=== PATIENT | female | born 1950 | race Caucasian/White ===

== ENCOUNTER 2021-12-17 14:39 | Observation (INO) | payer MEDICARE, SELFPAY ==
--- NOTE | ~2021-12-17 | CT_ITS ---
EXAMINATION: CT abdomen pelvis wo con DATE: 12/17/2021 18:09 INDICATION: LOWER abdominal pain, n/v/d TECHNIQUE: Computed tomography (CT) of the abdomen and pelvis was performed without intravenous contr ast. Automated exposure control and iterative reconstruction technique were employed. The dose-length product was 673.22 mGy-cm. COMPARISON: None FINDINGS: Lower thorax: Bibasilar atelectasis. Mild coronary artery calcification. Aortic valve calcification. Small-volume pericardial effusion. Liver: Normal. Biliary/Gallbladder: Gallbladder is normal. No bile duct dilation. Pancreas: No mass or duct dilation. Spleen: Granulomatous calcifications. Adrenals:No mass. Kidneys: No mass, stone, or hydronephrosis. GI tract: Multiple loops of dilated small bowel in the mid and lower left abdomen. A loop of of small bowel herniates through an umbilical hernia, with upstream dilation. Appendix not visualized. Divert iculosis without diverticulitis. Mesentery/Peritoneum: No ascites, mass, or free air. Retroperitoneum: No mass. Pelvis: Pelvic organs are within normal limits. Soft Tissues: Small and local hernia containing fat and a loop of small bowel, with a 1.7 cm neck. Th ere is surrounding inflammatory change. Bones: No acute osseous finding. IMPRESSION: 1. Small pericardial effusion. 2. Early small bowel obstruction versus partial small bowel obstruction due to herniation into an umb ilical hernia, with inflammation of the hernia sac. Reviewed, dictated and finalized at location K. IMPRESSION: 1. Small pericardial effusion. 2. Early small bowel obstruction versus partial small bowel obstruction due to herniation into an umbilical hernia, with inflammation of the hernia sac.
[2021-12-17 14:40] VITALS: BP 140/64; PULSE 66; RESP 14; TEMP 36.6; O2SAT 100
[2021-12-17 16:11] VITALS: BP 146/70; PULSE 65; RESP 18; TEMP 36.7; O2SAT 98
[2021-12-17 16:52] LABS: Basophils Percent Auto 0.3 % (0.2-1.2); Eosinophils Percent Auto 0.1 % (0-4.4); Hematocrit 39.5 % (37.0-47.0); Hemoglobin 12.4 g/dL (12.0-15.0); Immature Granulocyte Absolute 0.02 K/mm3 (0.00-0.031); Immature Granulocyte Percent A 0.3 % (0-0.5); Lymphocytes Absolute Auto 0.76 K/mm3 (0.9-3.2); Lymphocytes Percent Auto 9.8 % (18.3-44.2); Mean Corpuscular HGB Conc 31.4 g/dl (32-36); Mean Corpuscular Hemoglobin 28.4 pg (26-34); Mean Corpuscular Volume 90.6 fl (80-100); Monocytes Absolute Auto 0.2 K/mm3 (0.1-0.6); Monocytes Percent Auto 2.2 % (2.6-8.5); Neutrophils Absolute Auto 6.8 K/mm3 (1.3-6.7); Neutrophils Percent Auto 87.3 % (45.5-73.1); Platelet Count Result 252 k/mm3 (150-375); Red Blood Count 4.36 M/mm3 (4.2-5.4); Red Cell Distribution Width 13.8 % (11.5-14.5); White Blood Count 7.8 K/mm3 (4.5-10.0)
[2021-12-17 16:53] LABS: Appearance Urine Clear (Clear); Bilirubin Urine 1+ (Negative); Blood Urine Negative (Negative); Color Urine Yellow (Yellow); Glucose Urine UA Negative (Negative); Ketones Urine Trace mg/dL (Negative); Leukocyte Esterase Ur Negative LEU/UL (Negative); Nitrate Urine Negative (Negative); Protein Urine Negative (Negative); Specific Grav Ur >= 1.030 (1.001-1.035)
[2021-12-17 16:59] LABS: Bacteria Urine Trace /hpf; Mucus Urine Heavy /lpf; Squamous Epithelial Cell Urine Rare /hpf (Few)
[2021-12-17 17:00] LABS: Add Urine Microscopic? YES
[2021-12-17 17:04] LABS: Alanine Aminotransferase 21 U/L (6-35); Albumin Level 4.4 g/dL (3.5-5.1); Alkaline Phosphatase 64 U/L (38-126); Anion Gap 8 mmol/L (8-16); Aspartate Amino Transferase 34 U/L (14-36); Blood Urea Nitrogen 22 mg/dL (7-17); Calcium 8.9 mg/dL (8.4-10.2); Carbon Dioxide 26 mmol/L (22-30); Chloride 101 mmol/L (98-107); Estimated CRCL calculation 52 ml/min; Estimated Glomerular Filt Rate > 60; Glucose 152 mg/dL (65-110); Lipase 112 U/L (23-300); Potassium 3.8 mmol/L (3.4-5.0); Sodium 135 mmol/L (137-145)
[2021-12-17 17:29] VITALS: BP 146/70; PULSE 64; RESP 16; O2SAT 99
--- NOTE | 2021-12-17 17:30 | ED.ABDPAIN ---
HPI - Abdominal Pain General Chief Complaint: Abdominal Pain Stated Complaint: abdominal pain Time Seen by Provider: 12/17/21 16:15 History of Present Illness HPI narrative: 71-year-old female presented emerged department for evaluation of cute onset of abdominal pain. Patient states that she stood up earlier today and had acute onset periumbilical abdominal pain. Patient states that since that time she does have periumbilical tenderness. Patient states she has had this happen previously but states the symptoms only lasted approximately 5 minutes. Patient states that symptoms have persisted since lunchtime. Patient denies any prior previous abdominal surgical history or diagnosis of hernia. Related Data Allergies Allergy/AdvReac Type Severity Reaction Status Date / Time No Known Allergies Allergy Verified 12/17/21 17:30 Review of Systems Review of Systems: CONSTITUTIONAL: Denies fever, chills, or sweats. EYES: Denies visual changes, redness, or discharge. ENT: Denies rhinorrhea, congestion, sore throat, or otalgia. CARDIOVASCULAR: Denies chest pain, palpitations, or edema. RESPIRATORY: Denies cough or dyspnea. GASTROINTESTINAL: See HPI GENITOURINARY: Denies dysuria or hematuria. SKIN: Denies rash or itching. MUSCULOSKELETAL: Denies back pain, joint pain, or myalgia. NEUROLOGIC: Denies headache, numbness, or weakness. Exam Narrative: APPEARANCE: Well appearing, no pain, no distress, well-nourished. HEAD: normocephalic, atraumatic. EYES: PERRLA/EOMI, conjunctivae clear. NECK: Supple. No adenopathy, no masses. RESPIRATORY: Airway patent, respirations nonlabored. Clear to auscultation bilaterally, no rales, rhonchi, wheezing. CARDIOVASCULAR: Regular rate and rhythm without murmurs rubs or gallops. ABDOMINAL: Palpable umbilical hernia. No overlying erythema. Some tenderness to palpation. MUSCULOSKELETAL: Moves all extremities. Strength/ROM intact, No edema, No calf tenderness. NEURO: Alert. Cranial nerves II through XII intact. Grossly intact SKIN: Warm, dry. Normal Color Course Course Emergency Course: Attempted reduction of the hernia without success. Patient was able to tolerate the attempt well. Palpated aspect of the hernia was smaller after the attempt at reduction but is still clearly herniated on the CT scan. On reattempt hernia was ultimately reduced. Case was discussed with the hospitalist and patient was accepted for observation. Dr. Pineda was consulted. Reevaluation(s) Reevaluation #1: Hernia was able to be reduced successfully reattempt after ice pack. Consultations Consultation #1: Dr. Pineda was consulted for hernia repair. He stated if we are not able to reduce he recommended placement of NG tube. I was ultimately able to reduce the hernia and did not place an NG tube. Patient was still made NPO. Vital Signs Vital signs: Vital Signs Temperature 97.8 F 12/17/21 14:40 Pulse Rate 66 12/17/21 14:40 Respiratory Rate 14 12/17/21 14:40 Blood Pressure 140/64 12/17/21 14:40 Pulse Oximetry 100 12/17/21 14:40 Oxygen Delivery Room Air 12/17/21 14:40 Temperature 98.1 F 12/17/21 16:11 Pulse Rate 63 12/17/21 19:21 Respiratory Rate 15 12/17/21 19:21 Blood Pressure 156/74 H 12/17/21 19:21 Pulse Oximetry 96 12/17/21 19:21 Oxygen Delivery Room Air 12/17/21 16:11 MDM - Abdominal Pain Lab Data Attestation: I reviewed the patient's lab results. Result diagrams: 12/17/21 16:47 12/17/21 16:47 Labs: Lab Results 12/17/21 12/17/21 12/17/21 Range/Units 16:40 16:47 16:47 WBC 7.8 (4.5-10.0) K/mm3 RBC 4.36 (4.2-5.4) M/mm3 Hgb 12.4 (12.0-15.0) g/dL Hct 39.5 (37.0-47.0) % MCV 90.6 (80-100) fl MCH 28.4 (26-34) pg MCHC 31.4 L (32-36) g/dl RDW 13.8 (11.5-14.5) % Plt Count 252 (150-375) k/mm3 MPV 9.0 (7.4-10.4) fl Immature Gran % (Auto) 0.3 (0-0.5) % Neut % (Auto) 87.3 H (45
[2021-12-17] MEDS: HYDROmorphone HCL INJ (*CRX) 1 MG/ML SYR 0.5 MG IV PUSH (18:09)
[2021-12-17 19:21] VITALS: BP 156/74; PULSE 63; RESP 15; O2SAT 96
--- NOTE | 2021-12-17 19:22 | PC.NURSE ---
Assumed care of pt at this time. Pt alert and upright on stretcher, states pain has improved. Updated on POC
--- NOTE | 2021-12-17 19:25 | P.HP_ITS ---
H&P: HPI History of Present Illness Date/Time: 12/17/21 19:25 Meds Home Medications and Allergies Allergies Allergy/AdvReac Type Severity Reaction Status Date / Time No Known Allergies Allergy Verified 12/17/21 17:30 Vital Signs Vital Signs - 24 hr 12/17/21 14:40 12/17/21 16:11 12/17/21 17:29 Temperature 97.8 F 98.1 F Pulse Rate 66 65 64 Respiratory Rate 14 18 16 Blood Pressure 140/64 146/70 H 146/70 H Pulse Oximetry 100 98 99 Oxygen Delivery Room Air Room Air 12/17/21 19:21 Temperature Pulse Rate 63 Respiratory Rate 15 Blood Pressure 156/74 H Pulse Oximetry 96 Oxygen Delivery H&P: Results Labs Labs: Short CBC 12/17/21 Range/Units 16:47 WBC 7.8 (4.5-10.0) K/mm3 Hgb 12.4 (12.0-15.0) g/dL Hct 39.5 (37.0-47.0) % Plt Count 252 (150-375) k/mm3 BMP 12/17/21 16:47 Sodium 135 L Potassium 3.8 Chloride 101 Carbon Dioxide 26 BUN 22 H Creatinine 0.90 Glucose 152 H Calcium 8.9 Liver Function 12/17/21 Range/Units 16:47 Total Bilirubin 1.0 (0.2-1.3) mg/dL AST 34 (14-36) U/L ALT 21 (6-35) U/L Alkaline Phosphatase 64 (38-126) U/L Albumin 4.4 (3.5-5.1) g/dL Urine 12/17/21 Range/Units 16:40 Urine Color Yellow (Yellow) Urine Appearance Clear (Clear) Urine pH 6.0 (5.0-9.0) Ur Specific [place] >= 1.030 (1.001-1.035) Urine Protein Negative (Negative) mg/dL Urine Glucose (UA) Negative (Negative) mg/dL
[2021-12-17 20:08] VITALS: BP 149/71; PULSE 69; RESP 18; O2SAT 100
[2021-12-17 20:23] LABS: SARS-CoV-2 RNA PCR Negative
[2021-12-17 20:27] VITALS: BP 131/55; PULSE 69; RESP 17; TEMP 36.1; O2SAT 97
--- NOTE | 2021-12-17 20:39 | ADMGEN ---
This patient, Madisyn Miller, was admitted to Medical Room 247-. Patient/family oriented to hospital policies and general routines including ID bracelet, bed and alarms, visiting hours, pain management, procedures, bathroom and other care routines, personal items, smoking policy, room service/diet, and visiting hours. Information on how to activate the Rapid Response Team has been discussed. Patient/Family are encouraged to report perceived risks to care and to ask questions if they do not understand what they are told or what they should do.
[2021-12-17 20:50] VITALS: BMI 30.5
[2021-12-17] MEDS: SODIUM CHLORIDE 0.9% IV 1,000 ML 100 ML IV CONT (21:00)
--- NOTE | 2021-12-17 21:00 | PM.IMHP ---
H&P: HPI History of Present Illness Date/Time: 12/17/21 20:00 Chief Complaint: Abdominal pain. Narrative: This is a pleasant 71-year-old female with hyperlipidemia and diabetes who presented to the emergency department from home for evaluation of acute onset of abdominal pain. She developed sudden onset periumbilical abdominal pain after standing up from eating lunch at the table. She has a difficult time describing the pain but reports that it was quite severe. She took some Aleve which did not seem to help and due to persistent symptoms she was brought in for evaluation. CT of the abdomen and pelvis showed an early small-bowel obstruction versus partial small-bowel obstruction due to herniation into an umbilical hernia. The hernia was able to be reduced in the emergency department but it was felt that she should be admitted overnight for close monitoring and surgery consultation. At the time my evaluation she reports only a soreness in the umbilical region. She denies current abdominal pain, nausea, vomiting, diarrhea, and constipation. Review of Systems Review of Systems: Twelve systems were reviewed. No fever, chills, or sweats. No recent cold or flu symptoms. After she was diagnosed with diabetes, she started an exercise regimen and has been watching her portions and she has dropped between 50 and 60 lb. Her glucose is very well controlled. Except as documented, all other systems were reviewed and are negative. [facility] Past Medical History Medical History (Updated 12/18/21 @ 00:27 by Shari Mcguire PA-C) Hyperlipidemia Type 2 diabetes mellitus Surgical History Surgical History (Updated 12/18/21 @ 00:15 by Shari Mcguire PA-C) History of bilateral breast biopsy History of cataract extraction with lens replacement History of tubal ligation Family History Family History Mother Diabetes mellitus Sibling FH: juvenile onset diabetes mellitus Heart disease Sibling Stomach cancer Father Heart disease Social History Social History (Updated 12/18/21 @ 00:25 by Shari Mcguire PA-C) Social History: She designates her 3 children as her surrogate decision makers. Code status: Full code. Smoking status: Never smoker Alcohol intake: never Substance use: never Substance use type: does not use Additional living arrangements comments: The patient lives with her in [place]. Occupation/Education: retired Spiritual care concerns: No Meds Home Medications and Allergies Home Medications Medication Instructions Recorded Confirmed Type atorvastatin 20 mg tablet 1 tablet PO DAILY 12/17/21 12/17/21 History cholecalciferol (vitamin D3) 125 125 mcg PO DAILY 12/17/21 12/17/21 History mcg (5,000 unit) tablet (Vitamin D3) metformin 500 mg tablet,extended 1 tablet PO DAILY 12/17/21 12/17/21 History release 24 hr Allergies Allergy/AdvReac Type Severity Reaction Status Date / Time No Known Allergies Allergy Verified 12/17/21 20:43 Vital Signs Vital Signs - 24 hr 12/17/21 14:40 12/17/21 16:11 12/17/21 17:29 Temperature 97.8 F 98.1 F Pulse Rate 66 65 64 Respiratory Rate 14 18 16 Blood Pressure 140/64 146/70 H 146/70 H Pulse Oximetry 100 98 99 Oxygen Delivery Room Air Room Air 12/17/21 19:21 12/17/21 20:08 12/17/21 20:27 Temperature 96.9 F L Pulse Rate 63 69 69 Respiratory Rate 15 18 17 Blood Pressure 156/74 H 149/71 H 131/55 L Pulse Oximetry 96 100 97 Oxygen Delivery 12/17/21 21:19 Temperature Pulse Rate Respiratory Rate Blood Pressure Pulse Oximetry Oxygen Delivery Room Air Exam Narrative: General: Well-developed female supine in bed in no distress. Weight: 85.8 kg. BMI: 30.5. HEENT: PERRL, EOMI. Sclerae anicteric. Oral mucosa moist. Oropharynx clear. Neck: Supple. Respiratory: Lungs are clear to auscultation bilaterally. Cardiovascular: Regular rate a
[2021-12-18 04:39] VITALS: BP 112/47; PULSE 54; RESP 17; TEMP 36.6; O2SAT 99
[2021-12-18 08:10] LABS: Glucose Point of Care 73 mg/dl (65-105)
--- NOTE | 2021-12-18 09:37 | PM.CNGS ---
Assessment and Plan Assessment and plan (1) Incarcerated umbilical hernia: Code(s): K42.0 - Umbilical hernia with obstruction, without gangrene Status: Acute Assessment and Plan: Patient states that after the CT recorded from her ER stay Dr. Baird had ice bag placed on her umbilicus and when he returned to remove it and check on her before she came to the floor her hernia had reduced. She has no pain at this time and there is no palpable mass within the umbilical hernia at this time on my exam. She also notes that she has had this happen and she was able to reduce at home about 2 months ago. Therefore, I believe it is diana to go ahead and repair this while she is here. We have the luxury of time and that she is now already with a decreased diet. I have checked with the nursing lime supervisor and probably would be able to go ahead and do this tomorrow after my other cases. Therefore, the risk, benefits, possible complications of a laparoscopic possible open umbilical hernia repair with mesh have been described to the patient including bleeding, infection, possible injury to surrounding organs, possible need to convert to an open procedure and the possibilities of infection or complications with the mesh have been discussed. She seems understand wished to proceed. (2) Hyperlipidemia: Code(s): E78.5 - Hyperlipidemia, unspecified Status: Acute Assessment and Plan: Hold current medications until after surgery (3) Type 2 diabetes mellitus: Code(s): E11.9 - Type 2 diabetes mellitus without complications Status: Acute Assessment and Plan: Will ask hospitalist to monitor and treat during her hospital stay. Most likely she will return to use of metformin once she is through the time of surgery. History of Present Illness Consult details Consult date: 12/18/21 Reason for consult: hernia (Incarcerated umbilical -- status post reduction) Requesting physician: Shari Mcguire PA-C Narrative: This patient is a pleasant overweight 71-year-old white female who had the unfortunate situation of developing a small bowel obstruction secondary to a loop of SB becoming incarcerated in a small to medium size umbilical hernia. See ED notes from yesterday. Review of Systems Constitutional: Constitutional: Reports no additional constitutional complaints, Reports fatigue and Denies malaise Eyes: Eyes: Denies change in vision and Denies loss of vision ENT: Reports Normal hearing present, Denies change in voice, Denies dizziness, Denies hoarseness and Denies sore throat Cardiovascular: Cardiovascular: Denies chest pain, Denies leg edema and Denies dyspnea Comments: Patient has a history of hyperlipidemia and is on medication. Respiratory: Respiratory: Denies cough, Denies dyspnea and Denies wheezing Gastrointestinal: Gastrointestinal: Denies hematochezia, Denies change in bowel habits and Denies heartburn Genitourinary: Genitourinary: Denies urinary frequency and Denies urinary incontinence Neurologic: Reports Normal hearing present, Denies confusion, Denies dizziness, Denies loss of vision, Denies memory loss and Denies seizure-like activity Psychiatric: Psychiatric: Denies confusion, Denies depression and Denies memory loss Endocrine: Endocrine: Denies cold intolerance and Reports fatigue Comments: patient has about a 2-3 year history of type 2 diabetes and is on metformin. Hematologic/Lymphatic: Hematologic/Lymphatic: Denies easy bleeding and Denies easy bruising Allergic/Immunologic: Allergic/Immunologic: Denies wheezing PMFSH Past Medical History Medical History Hyperlipidemia Type 2 diabetes mellitus Surgical History Surgical History History of bilateral breast biopsy History of cataract extraction with lens replacement History of tubal ligation Family History F
--- NOTE | 2021-12-18 09:45 | PM.IMPN ---
Progress Note: A&P Assessment and Plan (1) Incarcerated umbilical hernia: Code(s): K42.0 - Umbilical hernia with obstruction, without gangrene Status: Acute Assessment and Plan: CT on arrival showed early small-bowel obstruction versus partial small obstruction related to hernia. Hernia has since been reduced and her abdominal pain is resolved. Surgery consulted and their input is appreciated. Will be scheduled for surgical procedure tomorrow Advance diet per surgery (2) Type 2 diabetes mellitus: Code(s): E11.9 - Type 2 diabetes mellitus without complications Status: Acute Assessment and Plan: Current glucose is 152 Hold metformin while hospitalized. Initiate sliding scale insulin, Accu-Cheks, and hypoglycemic protocol. (3) Hyperlipidemia: Code(s): E78.5 - Hyperlipidemia, unspecified Status: Acute Assessment and Plan: Continue statin; LFTs within normal limits. Time Spent With Patient Time with patient: Greater than 35 minutes Subjective Date/time seen: 12/18/21 09:45 Interval history: 12/18/2145 Patient stated that she feels better today. She stated that her belly does not hurt and she has no nausea, vomiting, chest pain, shortness of breath, weakness or fatigue. She did state that they were going to fix the hernia in the morning. She is also getting up and walking around. She also has been placed on clear liquids for the evening will be NPO after midnight. 12/17/21? 20:00 This is a pleasant 71-year-old female with hyperlipidemia and diabetes who presented to the emergency department from home for evaluation of acute onset of abdominal pain. She developed sudden onset periumbilical abdominal pain after standing up from eating lunch at the table. She has a difficult time describing the pain but reports that it was quite severe. She took some Aleve which did not seem to help and due to persistent symptoms she was brought in for evaluation. CT of the abdomen and pelvis showed an early small-bowel obstruction versus partial small-bowel obstruction due to herniation into an umbilical hernia. The hernia was able to be reduced in the emergency department but it was felt that she should be admitted overnight for close monitoring and surgery consultation. At the time my evaluation she reports only a soreness in the umbilical region. She denies current abdominal pain, nausea, vomiting, diarrhea, and constipation. Review of Systems Review of Systems: All systems reviewed & are unremarkable except as noted in HPI and below Exam Const: General: cooperative, healthy appearing, no acute distress, well developed, alert and awake Nutritional Appearance: well nourished Orientation/consciousness: patient oriented x3 Limitations: no limitations HENMT: Head: normal to inspection Ears: hearing grossly normal bilaterally General nose exam: Normal external nose present Mouth: Yes Normal oral and palatal mucosa present, Yes lip normal and Yes tongue normal Teeth and gingiva: abnormal tooth and associated gingiva and poor dentition Eyes: General: appearance normal, both eyes and all related structures Neck: Neck: normal visual inspection, full ROM, trachea midline and supple Chest: Chest palpation & inspection: normal inspection of the chest Resp: Effort & Inspection: normal respiratory effort and able to speak in complete sentences Auscultation: clear to auscultation bilaterally Cardio: Jugular venous distension: no JVD Rate: regular rate Rhythm: regular rhythm Heart sounds: S1 normal heart sound present and S2 normal heart sound present Peripheral pulses: Peripheral pulses 2+ throughout GI: Inspection: normal to inspection GI Palp: Yes Soft to palpation and No Tenderness to palpation present (GI) Auscultation: normal bowel sounds Skin: General skin exam: normal color and no rashes or lesions noted Lesions: no lesions Rashes: no rashes Trauma: no lace
[2021-12-18 11:42] LABS: Glucose Point of Care 80 mg/dl (65-105)
[2021-12-18] MEDS: polyethylene glycoL 3350 17 GM POWD.PACK PO ×2 (11:55→18:04)
--- NOTE | 2021-12-18 13:49 | PCCCNOTE ---
On 12/18/21, the student, [Mari Whittington], provided care and completed [facility] documentation on this patient. I have reviewed the student's documentation and agree with the findings.
[2021-12-18 14:20] VITALS: BP 126/71; PULSE 58; RESP 16; TEMP 35.9; O2SAT 100
[2021-12-18 16:33] LABS: Glucose Point of Care 74 mg/dl (65-105)
[2021-12-18 19:39] VITALS: BP 129/69; PULSE 55; RESP 16; TEMP 36.6; O2SAT 100
[2021-12-18] MEDS: BISACODYL 10 MG SUPPOSITORY RECTAL (20:17)
[2021-12-18 20:41] LABS: Glucose Point of Care 62 mg/dl (65-105)
[2021-12-18 21:10] LABS: Glucose Point of Care 81 mg/dl (65-105)
[2021-12-19] VITALS (10 sets, daily range): BP systolic 105–132; BP diastolic 50–68; PULSE 56–86; RESP 12–18; TEMP 36.2–36.9; O2SAT 95–100
[2021-12-19 05:50] LABS: Basophils Percent Auto 0.3 % (0.2-1.2); Eosinophils Absolute Auto 0.1 K/mm3 (0-0.3); Eosinophils Percent Auto 1.7 % (0-4.4); Hematocrit 34.6 % (37.0-47.0); Hemoglobin 11.3 g/dL (12.0-15.0); Immature Granulocyte Absolute 0.01 K/mm3 (0.00-0.031); Immature Granulocyte Percent A 0.2 % (0-0.5); Lymphocytes Absolute Auto 1.88 K/mm3 (0.9-3.2); Mean Corpuscular HGB Conc 32.7 g/dl (32-36); Mean Corpuscular Hemoglobin 29.4 pg (26-34); Mean Corpuscular Volume 90.1 fl (80-100); Mean Platelet Volume 9.5 fl (7.4-10.4); Monocytes Absolute Auto 0.5 K/mm3 (0.1-0.6); Monocytes Percent Auto 8.3 % (2.6-8.5); Neutrophils Absolute Auto 3.4 K/mm3 (1.3-6.7); Neutrophils Percent Auto 57.5 % (45.5-73.1); Platelet Count Result 228 k/mm3 (150-375); Red Blood Count 3.84 M/mm3 (4.2-5.4); Red Cell Distribution Width 13.6 % (11.5-14.5); White Blood Count 5.9 K/mm3 (4.5-10.0)
[2021-12-19 06:06] LABS: Anion Gap -1 mmol/L (8-16); Blood Urea Nitrogen 12 mg/dL (7-17); Calcium 8.1 mg/dL (8.4-10.2); Carbon Dioxide 28 mmol/L (22-30); Chloride 107 mmol/L (98-107); Estimated CRCL calculation 68 ml/min; Estimated Glomerular Filt Rate > 60; Glucose 73 mg/dL (65-110); Potassium 3.9 mmol/L (3.4-5.0); Sodium 134 mmol/L (137-145)
[2021-12-19 07:35] LABS: Glucose Point of Care 70 mg/dl (65-105)
[2021-12-19] MEDS: CHLORHEXIDINE GLUCONATE 4% SOL 120 ML BTL 1 APPLIC TOPICAL (07:48)
--- NOTE | 2021-12-19 08:00 | PM.IMPN ---
Progress Note: A&P Assessment and Plan (1) Incarcerated umbilical hernia: Code(s): K42.0 - Umbilical hernia with obstruction, without gangrene Status: Acute Assessment and Plan: CT on arrival showed early small-bowel obstruction versus partial small obstruction related to hernia. Hernia has since been reduced and her abdominal pain is resolved. Surgery consulted and their input is appreciated. Hernia repair scheduled for today Post op care per general surgery DVT prophylaxis deferred to surgery Currently NPO Advance diet per surgery (2) Type 2 diabetes mellitus: Code(s): E11.9 - Type 2 diabetes mellitus without complications Status: Acute Assessment and Plan: Current glucose is 73 Hold metformin while hospitalized. Initiate sliding scale insulin, Accu-Cheks, and hypoglycemic protocol. (3) Hyperlipidemia: Code(s): E78.5 - Hyperlipidemia, unspecified Status: Acute Assessment and Plan: Continue statin; LFTs within normal limits. Time Spent With Patient Time with patient: Greater than 35 minutes Subjective Date/time seen: 12/19/21 08 Interval history: 12/19/21 08 Patient states that she is doing pretty good today. She states that she is ready to eat or get this done. She denies any chest pain, shortness of breath, nausea, vomiting, diarrhea, constipation, weakness or fatigue. Patient did state that she had a bowel movement last night. She also stated that she was tolerating her clear liquids. 12/18/21 0945 Patient stated that she feels better today. She stated that her belly does not hurt and she has no nausea, vomiting, chest pain, shortness of breath, weakness or fatigue. She did state that they were going to fix the hernia in the morning. She is also getting up and walking around. She also has been placed on clear liquids for the evening will be NPO after midnight. 12/17/21? 20:00 This is a pleasant 71-year-old female with hyperlipidemia and diabetes who presented to the emergency department from home for evaluation of acute onset of abdominal pain. She developed sudden onset periumbilical abdominal pain after standing up from eating lunch at the table. She has a difficult time describing the pain but reports that it was quite severe. She took some Aleve which did not seem to help and due to persistent symptoms she was brought in for evaluation. CT of the abdomen and pelvis showed an early small-bowel obstruction versus partial small-bowel obstruction due to herniation into an umbilical hernia. The hernia was able to be reduced in the emergency department but it was felt that she should be admitted overnight for close monitoring and surgery consultation. At the time my evaluation she reports only a soreness in the umbilical region. She denies current abdominal pain, nausea, vomiting, diarrhea, and constipation. Review of Systems Review of Systems: All systems reviewed & are unremarkable except as noted in HPI and below Exam Const: General: cooperative, healthy appearing, no acute distress, well developed, alert and awake Nutritional Appearance: well nourished Orientation/consciousness: patient oriented x3 Limitations: no limitations HENMT: Head: normal to inspection Ears: hearing grossly normal bilaterally General nose exam: Normal external nose present Mouth: Yes Normal oral and palatal mucosa present, Yes lip normal and Yes tongue normal Teeth and gingiva: abnormal tooth and associated gingiva and poor dentition Eyes: General: appearance normal, both eyes and all related structures Neck: Neck: normal visual inspection, full ROM, trachea midline and supple Chest: Chest palpation & inspection: normal inspection of the chest Resp: Effort & Inspection: normal respiratory effort and able to speak in complete sentences Auscultation: clear to auscultation bilaterally Cardio: Jugular venous distension: no JVD Rate: regular ra
--- NOTE | 2021-12-19 09:40 | ECG_ITS ---
Measurements Intervals [place] Rate: 55 P: 71 TX: 166 QRS: -14 QRSD: 86 T: 53 QT: 404 QTc: 389 Interpretive Statements SINUS BRADYCARDIA OTHERWISE NORMAL ECG NO PREVIOUS ECG AVAILABLE FOR COMPARISON Electronically Signed On 12-19-2021 10:28:14 CDT by Agus Caledron M.D.
[2021-12-19 10:22] LABS: Glucose Point of Care 66 mg/dl (65-105)
--- NOTE | 2021-12-19 10:33 | WPDANESEPPF ---
Anes - Initial Pre Proc Eval Procedure: Operation Date: 12/19/21 12:00 Proposed Procedures p Laparoscopic Umbilical Hernia Repair With Mesh,Possible Open - Star Pineda MD Date/Time: 12/19/21 10:33 Surgeon: Acacia Chavarria MD Pre Op Diagnosis: Umbilical Hernia Patient Data Age: 71 Gender: F Height: 1.68 m Weight: 85.6 kg Last Vital Signs Temp 36.4 C L 12/19/21 04:16 Pulse 59 L 12/19/21 04:16 Resp 16 12/19/21 04:16 BP 132/65 12/19/21 04:16 Pulse Ox 98 12/19/21 04:16 O2 Del Method Room Air 12/18/21 09:25 Allergies Allergy/AdvReac Type Severity Reaction Status Date / Time No Known Allergies Allergy Verified 12/17/21 20:43 Home Medications Medication Instructions Recorded Confirmed Type atorvastatin 20 mg tablet 1 tablet PO DAILY 12/17/21 12/17/21 History cholecalciferol (vitamin D3) 125 125 mcg PO DAILY 12/17/21 12/17/21 History mcg (5,000 unit) tablet (Vitamin D3) metformin 500 mg tablet,extended 1 tablet PO DAILY 12/17/21 12/17/21 History release 24 hr Laboratory Tests 12/18/21 12/18/21 12/18/21 11:39 16:31 20:36 WBC RBC Hgb Hct MCV MCH MCHC RDW Plt Count MPV Immature Gran % (Auto) Neut % (Auto) Lymph % (Auto) [place] % (Auto) Eos % (Auto) Baso % (Auto) Lymph # (Auto) [place] # (Auto) Eos # (Auto) Baso # (Auto) Abs Immat Gran (auto) Absolute Neuts (auto) Absolute Nucleated RBC Nucleated RBC % Sodium Potassium Chloride Carbon Dioxide Anion Gap BUN Creatinine Estim Creat Clear Calc Estimated GFR Glucose POC Capillary Glucose 80 mg/dl mg/dl 74 mg/dl mg/dl 62 mg/dl L mg/dl (65-105) (65-105) (65-105) Calcium 12/18/21 12/19/21 12/19/21 21:05 05:14 05:14 WBC 5.9 K/mm3 K/mm3 (4.5-10.0) RBC 3.84 M/mm3 L M/mm3 (4.2-5.4) Hgb 11.3 g/dL L g/dL (12.0-15.0) Hct 34.6 % L % (37.0-47.0) MCV 90.1 fl fl (80-100) MCH 29.4 pg pg (26-34) MCHC 32.7 g/dl g/dl (32-36) RDW 13.6 % % (11.5-14.5) Plt Count 228 k/mm3 k/mm3 (150-375) MPV 9.5 fl fl (7.4-10.4) Immature Gran % (Auto) 0.2 % % (0-0.5) Neut % (Auto) 57.5 % % (45.5-73.1) Lymph % (Auto) 32.0 % % (18.3-44.2) [place] % (Auto) 8.3 % % (2.6-8.5) Eos % (Auto) 1.7 % % (0-4.4) Baso % (Auto) 0.3 % % (0.2-1.2) Lymph # (Auto) 1.88 K/mm3 K/mm3 (0.9-3.2) [place] # (Auto) 0.5 K/mm3 K/mm3 (0.1-0.6) Eos # (Auto) 0.1 K/mm3 K/mm3 (0-0.3) Baso # (Auto) 0.0 K/mm3 K/mm3 (0.0-0.1) Abs Immat Gran (auto) 0.01 K/mm3 K/mm3 (0.00-0.031) Absolute Neuts (auto) 3.4 K/mm3 K/mm3 (1.3-6.7) Absolute Nucleated RBC 0.0 K/mm3 K/mm3 (0.0-0.012) Nucleated RBC % 0.0 % % (0.0-0.2) Sodium 134 mmol/L L mmol/L (137-145) Potassium 3.9 mmol/L mmol/L (3.4-5.0) Chloride 107 mmol/L mmol/L (98-107) Carbon Dioxide 28 mmol/L mmol/L (22-30) Anion Gap -1 mmol/L L mmol/L (8-16) BUN 12 mg/dL D mg/dL (7-17) Creatinine 0.70 mg/dL mg/dL (0.7-1.0) Estim Creat Clear Calc 68 ml/min ml/min Estimated GFR > 60 (59 - ) Glucose 73 mg/dL mg/dL (65-110) POC Capillary Glucose 81 mg/dl mg/dl (65-105) Calcium 8.1 mg/dL L mg/dL (8.4-10.2) 12/19/21 12/19/21 07:31 10:20 WBC RBC Hgb Hct MCV
--- NOTE | 2021-12-19 11:50 | PC.NURSE ---
Patient to OR per stretcher at 1010 12/19/21.
--- NOTE | 2021-12-19 12:18 | WPDHPUPDATE1 ---
History and Physical Update Update Date/Time: 12/19/21 12:18 History and Physical has been reviewed, including an updated exam of the patient. There are NO changes in the patient's condition. Risks, benefits, and alternatives have been discussed and questions answered. Patient agrees to proceed with procedure.
[2021-12-19 14:29] LABS: Glucose Point of Care 65 mg/dl (65-105)
[2021-12-19] MEDS: ceFAZolin 2 GM/D5W 50 ML 2 GM/50 ML BAG IVPB (14:30)
[2021-12-19] MEDS: LIDO 2%/EPINEPHRINE 1:100,000 20 ML VIAL INFILTRATE (14:55)
[2021-12-19] MEDS: LACTATED RINGERS 1,000 ML 30 ML IV CONT (16:00)
[2021-12-19 16:06] LABS: Glucose Point of Care 101 mg/dl (65-105)
--- NOTE | 2021-12-19 16:18 | W.PM.PROC2 ---
Procedure Note - Detailed Date of Procedure 12/21/21 Pre-op Diagnosis Umbilical Hernia, recently incarcerated Post-op Diagnosis Same Procedure Performed Laparoscopic umbilical hernia repair with mesh Surgeon Star Pineda MD Podopediatrician Kaycee MARIO, OR assistant strength coach Anesthesia General Indications Patient presented to the ED 2 nights ago with an incarcerated umbilical hernia. She was seen yesterday morning and it had been reduced with a combination of manual pressure, IV medications for pain relief, and ice. After thorough discussion the patient decided to stay and have it fixed because this is the 2nd time that a loop of bowel had become incarcerated in it. (See CT scan that is showed there was a loop of bowel in the hernia while she was in the ER). Findings A fairly narrow necked umbilical hernia probably 2 cm in diameter with some ascitic fluid in it. No omentum or bowel was in the hernia at the time of our entry into the abdomen. There was also a wide-based adhesion adhesion between either a tongue of omentum or had appendix he has epiploica coming off the left colon to the left abdominal sidewall. Description of Procedure DESCRIPTION OF PROCEDURE: The patient was placed in the supine position on the operative table and after induction of adequate general endotracheal anesthesia by [facility], the entire abdomen was prepped and draped in usual sterile fashion and the head placed slightly up. An [place] drape was placed over the exposed part of the abdomen and used to prevent contact of the mesh with the skin during this clean case. A time-out was performed with the surgery team confirming patient and site of surgery. Following this, local anesthetic was placed in a spot selected about two finger-breadths below the costal margin on the left and a small incision made after instilling the local anesthetic using 2% lidocaine with epinephrine. Following this, a Veress needle technique using the water drop test was completed. Using 2 towel clips on the skin, I carefully elevated the skin and then passed the Veress needle into the abdomen and we could see that the saline dropped through the Veress needle easily. CO2 gas was connected and the abdomen was insufflated to 14 mm Hg pressure with CO2 gas. Following this, the 0 degree 5 mm laparascope was placed inside a 5 mm trocar, which was carefully twisted into the abdomen without difficulty, seeing a open pneumoperitoneum as we entered. Then, the trocar was removed, the sleeve confirmed to be nicely within the abdomen, and we carefully inspected the anterior abdomen. Careful inspection of the abdomen revealed no inguinal hernias. A defect in the fascia under the umbilicus that was seen initially,and appeared to be about 2 cm in size. After placing a 12 mm port in the left lower quadrant under direct vision with the laparoscope, we could see up into an estimated 2 cm defect. There was no incarceration of any omentum or any other adhesions to the underside of the umbilicus. There was fat from the urachus coming up into the area which might inhibit the tacks that I was planning to place through the mesh. Therefore this was taken down with Bovie cautery. There was also some fat along the midline extending up to the Falciform ligament. I also took this down and it retracted some towards the head. We had a little bleeding from this, and lost about 5 mL of blood. This was nicely cauterized and then moved out of the way. Following this, we carefully planned by measuring the defect. Our mesh, a circular 11 cm piece of Venta-lite mesh was chosen, so that we would have 4.5 cm of overlap in all directions over the circular umbilical defect. Following this, the Ventra-lite Echo II mesh hernia system was rolled and this was inserted through the LLQ 12 mm port after rolling it to protect the absorbable covering on the downside of the mesh. I then used the suture passer after making a small openin
[2021-12-19 17:24] LABS: Glucose Point of Care 91 mg/dl (65-105)
[2021-12-19] MEDS: HYDROcodone/acetaminophen (*CRX) 5-325 MG TABLET 1 TAB PO (17:40)
--- NOTE | 2021-12-19 18:00 | PM.DS ---
DS: Admitting Diagnosis Discharge Date 12/19/21 1800 Admitting Diagnosis Hernia DS: Discharge Diagnosis Discharge Diagnosis (1) Incarcerated umbilical hernia: Code(s): K42.0 - Umbilical hernia with obstruction, without gangrene Status: Acute Assessment and Plan: CT on arrival showed early small-bowel obstruction versus partial small obstruction related to hernia. Hernia has since been reduced and her abdominal pain is resolved. Surgery consulted and their input is appreciated. Hernia repair 12/19/21 Post op care per general surgery DVT prophylaxis deferred to surgery Currently NPO Advance diet per surgery (2) Type 2 diabetes mellitus: Code(s): E11.9 - Type 2 diabetes mellitus without complications Status: Acute Assessment and Plan: Current glucose is 73 Hold metformin while hospitalized. Initiate sliding scale insulin, Accu-Cheks, and hypoglycemic protocol. (3) Hyperlipidemia: Code(s): E78.5 - Hyperlipidemia, unspecified Status: Acute Assessment and Plan: Continue statin; LFTs within normal limits. DS: Summary Hospital Course Hospital Course: Patient is a 71-year-old female with past medical history of diabetes and hyperlipidemia who presented to the ED with excruciating severe abdominal pain. It was noted the patient had a hernia that was decreased in the ED and patient was not having any symptoms there after. General surgery was consulted and hernia repair was in order. Patient went for hernia repair on 12/19/2021. Patient had no postop complications and was stable for discharge post surgical procedure. Patient denied any complaints including chest pain, shortness of breath, nausea, vomiting, diarrhea, constipation, weakness or fatigue. Patient was stable for discharge per labs and vital signs. Status at Discharge Functional status at discharge: independent ambulation Overall status at discharge: patient is progressing back to baseline Time Spent with Patient Time attestation: Total time spent providing and/or coordinating discharge services: 36 minutes Time spent: Greater than 30 minutes Specific discharge activities: Diagnostic testing, chart review, developing a treatment plan, education, care coordination documentation, physical exam, result review Exam Const: General: cooperative, healthy appearing, no acute distress, well developed, alert and awake Nutritional Appearance: well nourished Orientation/consciousness: patient oriented x3 Limitations: no limitations HENMT: Head: normal to inspection Ears: hearing grossly normal bilaterally General nose exam: Normal external nose present Mouth: Yes Normal oral and palatal mucosa present, Yes lip normal and Yes tongue normal Teeth and gingiva: abnormal tooth and associated gingiva and poor dentition Eyes: General: appearance normal, both eyes and all related structures Neck: Neck: normal visual inspection, full ROM, trachea midline and supple Chest: Chest palpation & inspection: normal inspection of the chest Resp: Effort & Inspection: normal respiratory effort and able to speak in complete sentences Auscultation: clear to auscultation bilaterally Cardio: Jugular venous distension: no JVD Rate: regular rate Rhythm: regular rhythm Heart sounds: S1 normal heart sound present and S2 normal heart sound present Peripheral pulses: Peripheral pulses 2+ throughout GI: Inspection: normal to inspection Auscultation: normal bowel sounds Skin: General skin exam: normal color and no rashes or lesions noted Lesions: no lesions Rashes: no rashes Trauma: no lacerations or abrasions Wounds: no wounds Hair: normal Nails: normal Neuro: General: patient oriented x3, moves all extremities and Normal light touch and pain sensation Speech: normal speech Gait exam (Neuro): Normal gait present Extrem: General: normal to inspection Right upper extremity: normal to inspection Left upper extremi
== END 2021-12-19 19:30 | disposition home or self-care (01) ==
LOC: ANHED 19:05 → ANH2MED 20:30
PROVIDERS: Surgery; Admitting Provider Internal Medicine; Emergency Provider Emergency Medicine; PCP Internal Medicine; Visit Provider Nurse Practitioner
PROC: (CPT 49652; principal; 2021-12-19 12:00)
DX: K42.0 Umbilical hernia with obstruction, without gangrene (principal); E78.5 Hyperlipidemia, unspecified; E11.9 Type 2 diabetes mellitus without complications; Z20.822 Contact with and (suspected) exposure to COVID-19
CPT/HCPCS: 49652; 36415; 74176; 80048; 80053; 81001; 82948; 83605; 83690; 85025; 88305; 93005; 96361; 96365; 96375; 99285; A9270; C1781; C9803; G0378; J0690; J1100; J1170; J2250; J2370; J2405; J2704; J2710; J3010; J7030; J7120; U0003; U0005

== ENCOUNTER 2025-03-17 15:28 | Outpatient (CLI) | payer MEDICARE, SELFPAY ==
--- NOTE | ~2025-03-17 | MM_ITS ---
EXAMINATION: MM screening uyen BI w brielle HISTORY: Screening TECHNIQUE: Craniocaudal and mediolateral oblique 3-D tomosynthesis images were obtained and synthetic 2-D images were generated. CAD analysis was submitted and interpreted. COMPARISON: No prior mammogram is available for comparison at this institution. BREAST PARENCHYMAL COMPOSITION: There are scattered areas of fibroglandular density. FINDINGS: There is no evidence of suspicious mass, calcification, or architectural distortion to suggest malignancy. IMPRESSION: 1. No mammographic evidence of malignancy. Recommend routine screening mammography in one year. BI-RADS Category 2: Benign finding(s) Reviewed, dictated and finalized at location [facility]. IMPRESSION: 1. No mammographic evidence of malignancy. Recommend routine screening mammogra phy in one year. BI-RADS Category 2: Benign finding(s)
== END 2025-03-17 15:29 | disposition home or self-care (01) ==
LOC: ANHFOHIMG 15:30
PROVIDERS: PCP Internal Medicine; Visit Provider Internal Medicine
DX: Z12.31 Encounter for screening mammogram for malignant neoplasm of breast (principal)
CPT/HCPCS: 77063; 77067